=== PATIENT | male | born 1955 | race African-American/Black ===

== ENCOUNTER 2017-09-20 13:35 | Outpatient (CLI) | payer MEDICARE, BC | END 2017-09-20 13:36 | disposition home or self-care (01) | LOC: BICULT 13:35 | PROVIDERS: ATTEND Urology | DX: N18.3 Chronic kidney disease, stage 3 (moderate) (principal); N28.1 Cyst of kidney, acquired | CPT/HCPCS: 76770 ==

== ENCOUNTER 2018-04-09 08:00 | Outpatient (CLI) | payer MEDICARE, BC | END 2018-04-09 08:01 | disposition home or self-care (01) | LOC: BICULT 08:00 | PROVIDERS: ATTEND Internal Medicine Nephrology | DX: Z01.818 Encounter for other preprocedural examination (principal); N18.5 Chronic kidney disease, stage 5 | CPT/HCPCS: 93970; G0365 ==

== ENCOUNTER 2018-04-23 14:52 | Outpatient (CLI) | payer MEDICARE, BC | END 2018-04-23 14:53 | disposition home or self-care (01) | LOC: BICULT 14:52 | PROVIDERS: ATTEND Internal Medicine Nephrology | DX: N18.5 Chronic kidney disease, stage 5 (principal); N28.1 Cyst of kidney, acquired | CPT/HCPCS: 36415; 76770; 80069; 82575; 84156 ==

== ENCOUNTER 2019-04-04 21:50 | Inpatient (IN) | payer MEDICARE, BC ==
[2019-04-04 22:36] LABS: #Basophils 0.1 thou/uL (0.0-0.2); #Eosinphils 0.1 thou/uL (0.0-0.7); #Lymphocytes 1.4 thou/uL (1.20-3.40); #Monocytes 1.5 thou/uL (0.11-0.59); #Neutrophils 13.4 thou/uL (1.40-6.50); %Basophils 0.4 % (0.0-1.0); %Eosinophils 0.4 % (0.0-10.0); %Lymphocytes 8.7 % (21.0-51.0); %Monocytes 9.3 % (0.0-10.0); %Neutrophils 81.2 % (42.0-75.0); Hemoglobin 11.8 g/dL (14.0-18.0); Mean Corpuscular HGB CONC 32.7 g/dL (32.0-36.0); Mean Corpuscular Hemoglobin 29.3 pg (27.0-31.0); Mean Corpuscular Volume 89.6 fL (78.0-98.0); Mean Platelet Volume 8.2 fL (7.4-10.4); Platelet Count 268 thou/uL (130-400); RBC Distribution Width 14.1 % (11.5-14.5); Red Blood Cell (RBC) Count 4.03 mill/uL (4.70-6.10); White Blood Cell (WBC) Count 16.5 thou/uL (4.8-10.8)
--- NOTE | 2019-04-04 22:37 | RAD ---
PA AND LATERAL VIEWS CHEST: 04/04/19 HISTORY: Cough. Dizziness. FINDINGS/IMPRESSION: Comparison made with exam of 12/07/16. There are changes of median sternotomy. The heart size is normal. The aorta is tortuous. The lungs ar e expanded without focal areas of consolidation, pneumothoraces or pleural effusions. There is free a ir under the right hemidiaphragm. Findings are discussed over the telephone with the ER physician, Dr. Trever Vargas at 10:33 p.m. POS: ASMITA
[2019-04-04 22:57] LABS: ALT (SGPT) 12 U/L (8-55); AST (SGOT) 12 U/L (5-34); Albumin 3.4 g/dL (3.4-4.8); Alkaline Phosphatase 102 U/L (40-150); Anion Gap 14 mmol/L (10-20); BUN (Urea Nitrogen) 37 mg/dL (8.4-25.7); Bilirubin, Total 0.8 mg/dL (0.2-1.2); Calc. Creatinine Clearance 0 mL/min (70-130); Calcium 8.3 mg/dL (7.8-10.44); Carbon Dioxide 24 mmol/L (23-31); Chloride 102 mmol/L (98-107); Estimated GFR-MDRD 11; Globulin 3.1 g/dL (2.4-3.5); Glucose 116 mg/dL (80-115); Potassium 3.1 mmol/L (3.5-5.1); Protein, Total 6.5 g/dL (5.8-8.1); Sodium 137 mmol/L (136-145)
[2019-04-04 23:19] LABS: CKMB 0.7 ng/mL (0-6.6)
[2019-04-04] MEDS ORDERED: Acetaminophen 500 MG TAB ONE (23:27)
[2019-04-05] MEDS ORDERED: MEROPENEM 1 GM/50 ML 1 GM in Premix Bag 1 BAG IVPB SCH ×2 (00:15→08:00)
[2019-04-05 02:09] LABS: Troponin I 0.036 ng/mL (< 0.028)
[2019-04-05 06:41] LABS: Troponin I 0.027 ng/mL (< 0.028)
[2019-04-05] MEDS ORDERED: Potassium Chloride 20 MEQ TAB PO SCH (09:15)
[2019-04-05] MEDS ORDERED: HumaLOG 300 UNITS/3 ML VIAL SC PRN (10:17)
[2019-04-05 10:52] LABS: #Basophils 0.1 thou/uL (0.0-0.2); #Eosinphils 0.1 thou/uL (0.0-0.7); #Lymphocytes 0.9 thou/uL (1.20-3.40); #Monocytes 1.1 thou/uL (0.11-0.59); #Neutrophils 9.4 thou/uL (1.40-6.50); %Basophils 0.8 % (0.0-1.0); %Eosinophils 1.1 % (0.0-10.0); %Lymphocytes 7.6 % (21.0-51.0); %Monocytes 9.3 % (0.0-10.0); %Neutrophils 81.3 % (42.0-75.0); Hemoglobin 11.3 g/dL (14.0-18.0); Mean Corpuscular HGB CONC 32.5 g/dL (32.0-36.0); Mean Corpuscular Hemoglobin 29.4 pg (27.0-31.0); Mean Corpuscular Volume 90.5 fL (78.0-98.0); Mean Platelet Volume 8.3 fL (7.4-10.4); Platelet Count 220 thou/uL (130-400); Red Blood Cell (RBC) Count 3.83 mill/uL (4.70-6.10); White Blood Cell (WBC) Count 11.6 thou/uL (4.8-10.8)
[2019-04-05] MEDS: hydrALAZINE 20 MG/ML VIAL SLOW IVP PRN ×2 (11:40→20:37)
[2019-04-05 15:29] LABS: Bacteria/HPF None Seen HPF (None Seen); Bilirubin Negative (Negative); Blood, Urine 1+ (Negative); Clarity Clear (Clear); Glucose, Urine (Dipstick) Normal (Negative); Leukocyte Negative Leu/uL (Negative); Nitrite Negative (Negative); Protein, Urine (Dipstick) 300 mg/dL (Neg-Trace); Squamous Epithelial 0-3 HPF (0-3); Urobilinogen Normal mg/dL (Less than 2); WBC/HPF 0-3 HPF (0-3)
[2019-04-05] MEDS: Acetaminophen 500 MG TAB PO PRN ×2 (15:37→22:18)
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
[2019-04-05] MEDS ORDERED: Prevnar 13-Val Conj/PF 0.5 ML SYRINGE IM ONE (21:00)
[2019-04-06] MEDS: HumaLOG 300 UNITS/3 ML VIAL SC PRN ×2 (07:55→16:50)
[2019-04-06] MEDS: Aspirin 81 mg Enteric Coated Tablet PO SCH (08:00)
[2019-04-06] MEDS: Dutasteride 0.5 MG CAP PO SCH (08:00)
--- NOTE | 2019-04-06 08:41 | PRG ---
DATE OF SERVICE: 04/06/2019 SUBJECTIVE: The patient states that he is feeling better. Continued to run fevers last night up to 102. No nausea or vomiting. He denies chest pain, shortness of breath, or palpitations. He does state that he has been going to wound care since January for ulcers on his feet that have not commented on the status of them. They do not comment on whether they have been discolored or changing at all. OBJECTIVE: VITAL SIGNS: Temperature 99.1, T-max of 102.8, pulse is 76, respirations 16, blood pressure 163/77, and pulse ox is 95% on room air. GENERAL: He is awake and alert. No acute distress. Speech is clear. HEENT: Mucosa is moist. NECK: Supple. HEART: Regular rate and rhythm. LUNGS: Clear. ABDOMEN: Soft, nontender. No hepatosplenomegaly. Peritoneal catheter is in place. EXTREMITIES: With no edema. Dry ulcerated lesions on his right 4th and 5th toes, black in color. Dry ulceration on his 2nd left toe, which is black in color as well. LABORATORY DATA: White blood cell count 11,600, hemoglobin and hematocrit 11.3 and 34.7, and platelets of 220. Accu-Cheks of 112, 100, 168, 115. CBC is pending from this morning. Blood cultures are negative x24 hours. ASSESSMENT AND PLAN: This is a 63-year-old gentleman with type 2 diabetes, coronary artery disease, hypertension, end-stage kidney disease, on peritoneal dialysis, admitted with fever, rule out sepsis, and nonhealing foot wounds. 1. Fever. Await final blood cultures and dialysate culture as well as urine culture. Continue broad-spectrum antibiotics. 2. Gangrene of toes. We will check sed rate and x-ray is not done in the emergency department. Consult Surgery for evaluation. 3. Type 2 diabetes. We will continue Januvia and insulin sliding scale. 4. End-stage renal disease. Continue dialysis as per Dr. Antonio. Job ID: [id number]
[2019-04-06] MEDS: hydrALAZINE 20 MG/ML VIAL SLOW IVP PRN (08:51)
[2019-04-06] MEDS: Alogliptin 6.25 MG TAB PO SCH (08:56)
[2019-04-06] MEDS: Acetaminophen 500 MG TAB PO PRN (08:58)
[2019-04-06] MEDS ORDERED: Atenolol 25 MG TAB PO SCH (09:00)
[2019-04-06 09:20] LABS: ALT (SGPT) 11 U/L (8-55); AST (SGOT) 14 U/L (5-34); Albumin 2.8 g/dL (3.4-4.8); Alkaline Phosphatase 77 U/L (40-150); Anion Gap 14 mmol/L (10-20); BUN (Urea Nitrogen) 41 mg/dL (8.4-25.7); Bilirubin, Total 0.3 mg/dL (0.2-1.2); Calc. Creatinine Clearance 15 mL/min (70-130); Calcium 8.2 mg/dL (7.8-10.44); Carbon Dioxide 24 mmol/L (23-31); Chloride 101 mmol/L (98-107); Estimated GFR-MDRD 11; Globulin 2.9 g/dL (2.4-3.5); Glucose 142 mg/dL (80-115); Protein, Total 5.7 g/dL (5.8-8.1); Sodium 136 mmol/L (136-145)
[2019-04-06 09:24] LABS: #Basophils 0.1 thou/uL (0.0-0.2); #Eosinphils 0.1 thou/uL (0.0-0.7); #Lymphocytes 0.8 thou/uL (1.20-3.40); #Monocytes 0.9 thou/uL (0.11-0.59); #Neutrophils 7.1 thou/uL (1.40-6.50); %Basophils 0.7 % (0.0-1.0); %Eosinophils 1.4 % (0.0-10.0); %Lymphocytes 8.6 % (21.0-51.0); %Monocytes 10.1 % (0.0-10.0); %Neutrophils 79.2 % (42.0-75.0); Mean Corpuscular HGB CONC 32.6 g/dL (32.0-36.0); Mean Platelet Volume 8.4 fL (7.4-10.4); Platelet Count 222 thou/uL (130-400); Red Blood Cell (RBC) Count 3.45 mill/uL (4.70-6.10); White Blood Cell (WBC) Count 8.9 thou/uL (4.8-10.8)
[2019-04-06 09:26] LABS: Potassium 2.9 mmol/L (3.5-5.1)
[2019-04-06] MEDS: Calcitriol 0.25 MCG CAP PO SCH (09:30)
--- NOTE | 2019-04-06 09:37 | RAD ---
LEFT FOOT 3 VIEWS: Date: 04/06/19 COMPARISON: None. HISTORY: Evaluate for osteomyelitis. FINDINGS: There is enthesophyte formation at the insertion of the Achilles tendon and origin of the plantar apo neurosis. There is vascular calcification dorsally. There is no displaced fracture or evidence of dis location. IMPRESSION: No acute osseous abnormality. If there is high clinical concern for osteomyelitis on the basis of phy sical examination, MRI advised. POS: OFF
--- NOTE | 2019-04-06 09:38 | RAD ---
EXAM: Right foot 3 views: HISTORY: Swelling, concern for osteomyelitis COMPARISON: None FINDINGS: No significant bony erosive or destructive change. Given concern for osteomyelitis, particularly if there is evidence for a wound, follow-up MRI on a no nemergent basis is suggested. Degenerative changes. No acute fracture or dislocation or other significant acute osseous abnormality. Bony demineralization. IMPRESSION: No significant acute process.
[2019-04-06] MEDS ORDERED: Potassium Chloride 40 MEQ in Sodium Chloride 0.9% 250 ML 250 ML IVPB SCH (10:00)
[2019-04-06] MEDS ORDERED: cloNIDine 0.1 MG TAB PO SCH (10:45)
[2019-04-06] MEDS: MEROPENEM 1 GM/50 ML 1 GM in Premix Bag 1 BAG IVPB SCH ×2 (14:41→20:59)
[2019-04-06] MEDS: cloNIDine 0.1 MG TAB PO SCH ×2 (14:41→20:18)
[2019-04-06] MEDS: Spironolactone 25 MG TAB PO SCH (16:50)
--- NOTE | 2019-04-06 17:41 | PRG ---
DATE OF SERVICE: 04/06/2019 SUBJECTIVE: The patient seen and examined. Noted with the following vital signs. OBJECTIVE: VITAL SIGNS: Afebrile, temperature 99.8, pulse of 78, respiratory rate of 18, blood pressure 131/94, 212/88. HEENT: Unremarkable. CARDIOVASCULAR SYSTEM: First and second heart sounds were heard. RESPIRATORY SYSTEM: Clear to auscultation. DIGESTIVE SYSTEM: Revealed a benign abdomen. EXTREMITIES: No peripheral edema. SKIN: No new gross rash. LYMPHATICS: No peripheral lymphadenopathy. LABORATORY DATA: Laboratory investigation showed a temperature maximum of 102.8. IMPRESSION: 1. End-stage renal disease, on peritoneal dialysis. 2. Fever . 3. Labile hemodynamics. May need to reintroduce some of this patient's antihypertensive medication. PLAN: 1. The patient to continue with current regimen of peritoneal dialysis. 2. Fever workup as per the primary team. 3. Monitor the hemodynamics and adjust antihypertensive and . Job ID: [id number]
--- NOTE | 2019-04-06 18:18 | PRG ---
DATE OF SERVICE: 04/06/2019 SUBJECTIVE: The patient noted with severe elevated blood pressure of 202/88. Also noted is electrolyte abnormalities in the way of hypokalemia with potassium of 2.9. PLAN: 1. We will replete the potassium. 2. We will have the patient continue with spironolactone with possibility of adjusting his dose for now, but the patient does have some component of hyperaldosteronic state. Job ID: [id number]
[2019-04-06] MEDS: Atenolol 25 MG TAB PO SCH (20:18)
[2019-04-07] MEDS: MEROPENEM 1 GM/50 ML 1 GM in Premix Bag 1 BAG IVPB SCH ×3 (05:11→21:50)
[2019-04-07] MEDS: hydrALAZINE 20 MG/ML VIAL SLOW IVP PRN (05:20)
[2019-04-07 05:50] LABS: HBSAg Index 0.17 S/CO (0-0.99); Hep B Surf Ag Non-Reactive S/CO (NonReactive)
[2019-04-07] MEDS: Calcitriol 0.25 MCG CAP PO SCH (08:43)
[2019-04-07] MEDS: Aspirin 81 mg Enteric Coated Tablet PO SCH (08:45)
[2019-04-07] MEDS: Spironolactone 25 MG TAB PO SCH ×2 (08:45→17:12)
[2019-04-07] MEDS: cloNIDine 0.1 MG TAB PO SCH ×3 (08:45→20:37)
[2019-04-07] MEDS: Dutasteride 0.5 MG CAP PO SCH (08:46)
[2019-04-07] MEDS: Potassium Chloride 20 MEQ TAB PO SCH ×2 (08:46→17:12)
[2019-04-07] MEDS: Atenolol 25 MG TAB PO SCH ×2 (08:47→20:37)
[2019-04-07] MEDS: Alogliptin 6.25 MG TAB PO SCH (08:47)
--- NOTE | 2019-04-07 11:50 | PRG ---
DATE OF SERVICE: 04/07/2019 SUBJECTIVE: Mr. Wise is resting well. He has no medical complaints. OBJECTIVE: VITAL SIGNS: Temperature 98.4, blood pressure 165/71. LUNGS: Clear. HEART: Reveals a regular rate and rhythm. No murmurs, gallops, or rubs. EXTREMITIES: Right foot, there is still some necrotic tissue to the dorsal aspect of the right 4th and 5th toes. There is no evidence of any significant swelling or foul smell. LABORATORY DATA: Microbiology, so far no growth is noted. IMPRESSION: 1. Cellulitis of the right foot. 2. Type 2 diabetes mellitus. 3. End-stage renal disease. PLAN: Continue current treatment. Awaiting surgical consult. Job ID: [id number]
[2019-04-07] MEDS: HumaLOG 300 UNITS/3 ML VIAL SC PRN ×2 (14:10→17:15)
--- NOTE | 2019-04-07 14:33 | CON ---
DATE OF CONSULTATION: REQUESTING PHYSICIAN: Tom Dorman DO REASON FOR CONSULTATION: Need for maintenance peritoneal dialysis. IMPRESSION: 1. End-stage renal disease, on peritoneal dialysis. 2. Hypokalemia. 3. Fever, query source. PLAN: 1. Patient to be dialyzed tonight with dialysis. 2. Renally dose all medications and avoid potentially nephrotoxic agents. HISTORY OF PRESENT ILLNESS: History is that of a 63-year-old gentleman who presented here with nausea, vomiting, leg swelling, and fever. The patient has been worked up so far. The source of the fever is not being found. The patient does not have any urinary symptoms in terms of dysuria nor any frequency. The need for maintenance peritoneal dialysis necessitated this Renal consultation. PAST MEDICAL HISTORY: 1. Significant for end-stage renal disease, on . 2. Hypertension. 3. Tobacco abuse. 4. Dyslipidemia. FAMILY HISTORY: No family history significantly related to present illness. SOCIAL HISTORY: The patient is . No alcohol. . REVIEW OF SYSTEMS: As documented in the body of the history. All other systems were reviewed and found not to be significantly related to present illness. PHYSICAL EXAMINATION: GENERAL: The patient was found not to be in any obvious distress, noted with the following vital signs. VITAL SIGNS: T maximum of 102.7, pulse 90, respiratory rate of 20, O2 saturations are 95% with blood pressure 182/68 . HEENT: Unremarkable. CARDIOVASCULAR SYSTEM: First and second heart sounds were heard. RESPIRATORY SYSTEM: . EXTREMITIES: No peripheral edema. SKI: No new gross rash. LYMPHATICS: No peripheral lymphadenopathy. SUMMARY: A 63-year-old gentleman with end-stage renal disease, on peritoneal dialysis. Job ID: [id number]
[2019-04-07 14:39] LABS: Anion Gap 11 mmol/L (10-20); BUN (Urea Nitrogen) 44 mg/dL (8.4-25.7); Calc. Creatinine Clearance 14 mL/min (70-130); Calcium 7.8 mg/dL (7.8-10.44); Carbon Dioxide 25 mmol/L (23-31); Chloride 99 mmol/L (98-107); Estimated GFR-MDRD 10; Glucose 211 mg/dL (80-115); Potassium 3.3 mmol/L (3.5-5.1); Sodium 132 mmol/L (136-145)
--- NOTE | 2019-04-07 20:25 | PRG ---
DATE OF SERVICE: 04/07/2019 SUBJECTIVE: The patient seen and examined. Noted with the following vital signs. OBJECTIVE: VITAL SIGNS: Afebrile, temperature 98.2, pulse 66, respiratory rate of 16, O2 saturation of 97% with a blood pressure of 161/70. HEENT: Unremarkable. CARDIOVASCULAR SYSTEM: First and second heart sounds were heard. RESPIRATORY SYSTEM: Clear to auscultation. DIGESTIVE SYSTEM: Revealed a benign abdomen. EXTREMITIES: No peripheral edema. SKIN: No new gross rash. LYMPHATICS: No peripheral lymphadenopathy. LABORATORY DATA: Laboratory investigation significant for potassium of 3.3, sodium 132, creatinine 6.73. IMPRESSION: 1. End-stage renal disease, on peritoneal dialysis. 2. Mild hypokalemia. 3. Mild hyponatremia. 4. Cellulitis of the . PLAN: 1. Replete potassium. 2. Continue current peritoneal dialysis treatment. 3. Further management to be dependent on the clinical course. Job ID: [id number]
[2019-04-08] MEDS: MEROPENEM 1 GM/50 ML 1 GM in Premix Bag 1 BAG IVPB SCH ×3 (05:21→21:43)
[2019-04-08] MEDS: cloNIDine 0.1 MG TAB PO SCH ×3 (08:21→22:34)
[2019-04-08] MEDS: Calcitriol 0.25 MCG CAP PO SCH (08:22)
[2019-04-08] MEDS: Dutasteride 0.5 MG CAP PO SCH (08:22)
[2019-04-08] MEDS: Spironolactone 25 MG TAB PO SCH ×2 (08:22→16:37)
[2019-04-08] MEDS: Alogliptin 6.25 MG TAB PO SCH (08:22)
[2019-04-08] MEDS: Aspirin 81 mg Enteric Coated Tablet PO SCH (08:23)
[2019-04-08] MEDS: Atenolol 25 MG TAB PO SCH ×2 (08:24→22:34)
[2019-04-08 08:32] LABS: #Eosinphils 0.3 thou/uL (0.0-0.7); #Lymphocytes 1.4 thou/uL (1.20-3.40); #Monocytes 1.4 thou/uL (0.11-0.59); #Neutrophils 7.3 thou/uL (1.40-6.50); %Basophils 0.2 % (0.0-1.0); %Eosinophils 2.4 % (0.0-10.0); %Lymphocytes 13.8 % (21.0-51.0); %Monocytes 13.3 % (0.0-10.0); %Neutrophils 70.3 % (42.0-75.0); Hemoglobin 9.7 g/dL (14.0-18.0); Mean Corpuscular HGB CONC 32.8 g/dL (32.0-36.0); Mean Corpuscular Hemoglobin 28.7 pg (27.0-31.0); Mean Corpuscular Volume 87.5 fL (78.0-98.0); Mean Platelet Volume 8.5 fL (7.4-10.4); Platelet Count 215 thou/uL (130-400); RBC Distribution Width 13.7 % (11.5-14.5); Red Blood Cell (RBC) Count 3.38 mill/uL (4.70-6.10); White Blood Cell (WBC) Count 10.4 thou/uL (4.8-10.8)
[2019-04-08] MEDS ORDERED: Magnesium Citrate 300 ML BOT PO SCH (08:45)
--- NOTE | 2019-04-08 08:47 | PRG ---
DATE OF SERVICE: 04/08/2019 SUBJECTIVE: The patient is feeling fine. He denies any recent fevers or chills. Denies chest pain, shortness of breath, or palpitations. Tolerating dialysis. Appetite is good. He denies nausea and vomiting. OBJECTIVE: VITAL SIGNS: Temperature 98.9, which is his T-max, pulse is 69, respirations 16, blood pressure 143/66, pulse ox is 94% on room air. GENERAL: He is awake and alert, in no acute distress. Speech is clear. HEENT: Mucosa is moist. NECK: Supple. HEART: Regular rate and rhythm without murmurs. LUNGS: Clear. ABDOMEN: Soft. Peritoneal catheter in place. No sign of redness or discharge. EXTREMITIES: Left upper arm with fistula in place. Positive thrill. LABORATORY DATA: None. No CBC today. Accu-Cheks of 184, 155, 163, 187. Blood cultures 1/2 positive with methicillin-sensitive Staph aureus. Peritoneal fluid positive for gram-negative rods with final identification pending. ASSESSMENT AND PLAN: This is a 63-year-old gentleman with end-stage kidney disease, on peritoneal dialysis, admitted with fever, confusion, rule out sepsis. Continue broad-spectrum antibiotics. 1. Possible peritonitis. Surgery evaluation as well as ID evaluation for possible exchange of peritoneal catheter. 2. Gangrene of the toes, elevated sedimentation rate. X-rays not elucidating. Await surgical evaluation for possible amputation. 3. Type 2 diabetes, appears to be stable on Januvia and sliding scale. 4. End-stage renal disease, on peritoneal dialysis. Plan as well as electrolyte replacement as per Dr. Antonio. Job ID: [id number]
[2019-04-08] MEDS: hydrALAZINE 20 MG/ML VIAL SLOW IVP PRN (09:34)
[2019-04-08] MEDS: Docusate 100 MG CAP PO SCH ×2 (09:35→22:35)
[2019-04-08] MEDS: HumaLOG 300 UNITS/3 ML VIAL SC PRN ×2 (11:40→16:38)
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
[2019-04-08] MEDS ORDERED: hydrALAZINE 20 MG/ML VIAL SLOW IVP PRN (21:35)
[2019-04-08] MEDS ORDERED: Acetaminophen 500 MG TAB PO PRN (21:36)
[2019-04-09] MEDS: MEROPENEM 1 GM/50 ML 1 GM in Premix Bag 1 BAG IVPB SCH ×2 (05:16→14:01)
--- NOTE | 2019-04-09 07:52 | PRG ---
DATE OF SERVICE: 04/09/2019 SUBJECTIVE: He feels fine. He denies chest pain or shortness of breath. Denies abdominal pain, nausea, or vomiting. Denies foot pain. No further fever. Appetite is good. He states that his blood pressure is higher when he is lying down, but improves when he stands up, not having any headaches. OBJECTIVE: VITAL SIGNS: Temperature 97.9, pulse is 68, respirations 16, blood pressure 124/57, and pulse ox is 94% on room air. GENERAL: He is awake and alert. No acute distress. Speech is clear. NECK: Supple. HEART: Regular rate and rhythm. LUNGS: Clear. ABDOMEN: Soft. EXTREMITIES: Without change in foot. LABORATORY DATA: White blood cell count 10.4, hemoglobin and hematocrit 9.7 and 29.6, and platelets of 215. Accu-Cheks of 193, 145, 189, and 180. Peritoneal fluid culture with gram-negative rods, final identification is still pending. Blood cultures 1/2 positive with methicillin-sensitive Staph aureus. ASSESSMENT AND PLAN: This is a 63-year-old gentleman with end-stage renal disease on peritoneal dialysis, admitted with episode of fever, confusion, and rule out sepsis. 1. Apparent peritonitis, day four of meropenem. Await Infectious Disease evaluation. May need to discontinue peritoneal dialysis and switch to hemodialysis. If infected, may need to exchange the peritoneal catheter. 2. Dry gangrene of the toes, appear stable. Appreciate Dr. Sneed's evaluation. No need for amputation at this point. I will continue outpatient wound care as well as cardiovascular evaluation for possible redo of peripheral bypass. 3. Type 2 diabetes. We will continue medications. I will increase insulin for better coverage. Job ID: [id number]
[2019-04-09] MEDS: Atenolol 25 MG TAB PO SCH ×2 (08:29→22:01)
[2019-04-09] MEDS: Docusate 100 MG CAP PO SCH ×2 (08:29→22:00)
[2019-04-09] MEDS: Dutasteride 0.5 MG CAP PO SCH (08:30)
[2019-04-09] MEDS: cloNIDine 0.1 MG TAB PO SCH ×3 (08:30→22:01)
[2019-04-09] MEDS: Aspirin 81 mg Enteric Coated Tablet PO SCH (08:30)
[2019-04-09] MEDS: Calcitriol 0.25 MCG CAP PO SCH (08:31)
[2019-04-09] MEDS: Alogliptin 6.25 MG TAB PO SCH ×2 (08:31→08:34)
[2019-04-09] MEDS: Spironolactone 25 MG TAB PO SCH ×2 (08:32→18:12)
--- NOTE | 2019-04-09 12:42 | PQF ---
ANIKET WHEELERANNE MARIE DO [id number] CLINICAL DOCUMENTATION IMPROVEMENT CLARIFICATION FORM: ICD-10 Updated PLEASE DO AN ADDENDUM TO THE PROGRESS NOTE WITH ANY DOCUMENTATION UPDATES OR ADDITIONS AND CARRY THROUGH TO DC SUMMARY. THANK YOU. DATE: 04/09/2019 , 04/10/2019 ATTN: DR. Fredrick [place] Please exercise your independent, professional judgment in responding to the clarification form. Clinical indicators are provided on the bottom of this form for your review. Please check appropriate box(s) to clarify if the following diagnosis has been ruled in or ruled out: [ ] Sepsis D/T Peritoneal Dialysis Catheter [ ] Sepsis D/T Other Causes [ XX ] Local infection only, No Sepsis [ ] Other diagnosis [ ] Unable to determine In addition, please specify: Present on Admission (POA): [XX ] Yes [ ] No [ ] Unable to determine For continuity of documentation, please document condition throughout progress notes and discharge summary. Thank You. CLINICAL INDICATORS - SIGNS / SYMPTOMS / LABS 04/04 WBC 16.5 04/05 WBC 11.6 04/05 TEMP 101.4> 102.7> 102.8 04/05 H&P (JAYA) A/P : THIS IS A 63 YEAR OLD GENTLEMAN WITH A HISTORY OF TYPE OF T DIABETES, CORONARY ARTERY DISEASE, AND END STAGE RENAL DISEASE, ON PERITONEAL DIALYSIS, NOW ADMITTED WITH FEVERS AND ELEVATED WHITE BLOOD CELL COUNT, WE WILL RULE OUT SEPSIS, RULE OUT PERITONITIS, , POSSIBLE UPPER RESPIRATORY INFECTION, POSSIBLE PNEUMONIA. 04/06 PN (JAYA) CONTINUED TO RUN FEVERS LAST NIGHT UP TO 102. A/P: RULE OUT SEPSIS AND NONHEALING FOOT WOUNDS. 04/08 PN (JAYA) RULE OUT SEPSIS. CONTINUE BROAD SPECTRUM ANTIBIOTICS. 1) POSSIBLE PERITONITIS. SX EVALUATION WELL ID EVALUATION FOR POSSIBLE EXCHANGE OF PERITONEAL CATHETER. 2). GANGRENE OF THE TOES, ELEVATED SEDIMENTATION RATE. 04/08 CONSULT (BAN) THERE IS NO EVIDENCE OF CELLULITIS, AT THIS POINT, I DO NOT THINK THIS THE ETIOLOGY OF THE PATIENTS BACTEREMIA, AND FURTHER ATTENTION TO HIS FEET IS NOT WARRANTED. HE SHOULD WASH THEM DAILY WITH SOAP AND WATER. THERE IS NO CELLULITIS, ULCERATIONS, OR INFECTION CURRENTLY. 04/09 PN (IMPERIAL) A/P: RULE OUT SEPSIS. 1. APPARENT PERITONITIS, DAY FOUR OF MEROPENEM. AWAIT ID EVALUATION. MAY NEED TO DISCONTINUE PERITONEAL DIALYSIS AND SWITCH TO HEMODIALYSIS IF INFECTED., MAY NEED TO EXCHANGE THE PERITONEAL CATHETER. 2). DRY GANGRENE OF THE TOES, APPEAR STABLE. NO NEED FOR AMPUTATION AT THIS PONT. RISK: PT HAS PERITONEAL DIALYSIS CATHETER (PN/IMPERIAL) 04/09 DX: GANGRENE OF TOES, PERITONITIS (IMPERIAL/ PN ) 04/08-04/09 TREATMENTS: ID CONSULT ORDERED (AMILCAR / 04/08) SX CONSULT ( BAN 04/08) MEROPENEM IV ( 04/05-PRESENT) THANK YOU! [place] (This form is maintained as a part of the permanent medical record) 2014 [employer], [employer]. All Rights Reserved KIRIT [email or web address] [phone] [email or web address]
[2019-04-09] MEDS ORDERED: Vancomycin HCl 1.25 GM in Sodium Chloride 0.9% 250 ML 300 ML IVPB SCH (18:00)
[2019-04-09] MEDS: HumaLOG 300 UNITS/3 ML VIAL SC PRN (19:01)
--- NOTE | 2019-04-09 21:32 | PRG ---
DATE OF SERVICE: 04/09/2019 SUBJECTIVE: The patient is seen and examined, very eager to go home, noted with the following vital signs. OBJECTIVE: VITAL SIGNS: Afebrile, temperature of 97.5, pulse of 65, respiratory rate of 18, O2 saturation of 99% with blood pressure of . HEENT: Unremarkable. CARDIOVASCULAR: First and second heart sounds were heard. RESPIRATORY: Clear to auscultation. DIGESTIVE: Benign abdomen with positive bowel sounds. EXTREMITIES: No peripheral edema. SKIN: No new gross rash. LYMPHATICS: No peripheral lymphadenopathy. LABORATORY INVESTIGATIONS: Body fluid culture had grew out Sphingomonas paucimobilis and a blood culture had grew out Staphylococcus aureus. IMPRESSION: 1. End-stage renal disease, on peritoneal dialysis. 2. Fever, query source, possibly due to wound; however, the weird organism growing out of the peritoneal fluid is questionable. 3. Hypertension. PLAN: 1. We will require the help of Infectious Disease specialist to help with this weird organism growing out of the peritoneal fluid. 2. The patient is already on antibiotics, broad spectrum. 3. We will continue with current peritoneal dialysis regimen. 4. Further management will be dependent on the clinical course. Job ID: [id number]
[2019-04-09] MEDS: Cipro 250 MG TAB PO SCH (22:00)
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
[2019-04-10] MEDS: Cipro 250 MG TAB PO SCH ×2 (06:34→22:16)
[2019-04-10] MEDS: HumaLOG 300 UNITS/3 ML VIAL SC PRN ×3 (06:35→22:17)
[2019-04-10] MEDS: Calcitriol 0.25 MCG CAP PO SCH (08:28)
[2019-04-10] MEDS: Spironolactone 25 MG TAB PO SCH ×2 (08:28→16:17)
[2019-04-10] MEDS: Aspirin 81 mg Enteric Coated Tablet PO SCH (08:28)
[2019-04-10] MEDS: Dutasteride 0.5 MG CAP PO SCH (08:28)
[2019-04-10] MEDS: Docusate 100 MG CAP PO SCH ×2 (08:28→22:16)
[2019-04-10] MEDS: Alogliptin 6.25 MG TAB PO SCH (08:28)
[2019-04-10] MEDS: Atenolol 25 MG TAB PO SCH ×2 (08:29→22:15)
[2019-04-10] MEDS: cloNIDine 0.1 MG TAB PO SCH ×3 (08:31→22:16)
[2019-04-10 09:09] LABS: #Eosinphils 0.3 thou/uL (0.0-0.7); #Lymphocytes 1.7 thou/uL (1.20-3.40); #Monocytes 1.3 thou/uL (0.11-0.59); %Basophils 0.3 % (0.0-1.0); %Eosinophils 2.8 % (0.0-10.0); %Lymphocytes 13.4 % (21.0-51.0); %Monocytes 10.6 % (0.0-10.0); Hemoglobin 10.6 g/dL (14.0-18.0); Mean Corpuscular HGB CONC 33.4 g/dL (32.0-36.0); Mean Corpuscular Hemoglobin 29.2 pg (27.0-31.0); Mean Corpuscular Volume 87.7 fL (78.0-98.0); Mean Platelet Volume 8.1 fL (7.4-10.4); Platelet Count 263 thou/uL (130-400); RBC Distribution Width 13.6 % (11.5-14.5); Red Blood Cell (RBC) Count 3.61 mill/uL (4.70-6.10); White Blood Cell (WBC) Count 12.4 thou/uL (4.8-10.8)
[2019-04-10 09:33] LABS: Anion Gap 14 mmol/L (10-20); BUN (Urea Nitrogen) 41 mg/dL (8.4-25.7); Calc. Creatinine Clearance 12 mL/min (70-130); Calcium 8.1 mg/dL (7.8-10.44); Carbon Dioxide 24 mmol/L (23-31); Chloride 100 mmol/L (98-107); Estimated GFR-MDRD 9; Glucose 135 mg/dL (80-115); Potassium 3.4 mmol/L (3.5-5.1); Sodium 135 mmol/L (136-145)
--- NOTE | 2019-04-10 10:00 | PRG ---
DATE OF SERVICE: 04/10/2019 SUBJECTIVE: The patient is feeling well. He denies any fevers, chills. Denies nausea and vomiting. Denies abdominal pain. Appetite is good. Denies headache , visual or hearing changes. Tolerating medicines. OBJECTIVE: VITAL SIGNS: Temperature 98.5, pulse is 68, respirations 16, blood pressure 148 to 179 over 72 to 80. GENERAL: He is awake and alert. No acute distress. HEENT: Mucosa is moist. NECK: Supple. HEART: Regular rate and rhythm. LUNGS: Clear. ABDOMEN: Soft. EXTREMITIES: With no edema. No changes in wounds on right toes and left toe. Decreased peripheral pulses bilaterally. Peritoneal catheter is in place. No sign of infection. No redness. No tenderness. Left fistula with positive thrill. LABORATORY RESULTS: Laboratory data pending. CARDIOVASCULAR STUDIES: Echocardiogram is pending. IMAGING STUDIES: MRI is pending. ASSESSMENT AND PLAN: This is a 63-year-old gentleman with end-stage kidney disease, uncontrolled type 2 diabetes, uncontrolled hypertension, history of noncompliance, admitted with fever, confusion, rule out sepsis. 1. Peritonitis is ruled out. Discussed with Dr. Avalos about the positive Sphingomonas in the peritoneal fluid and its apparent contaminant as it is a skin bacteria. He feels that there is no treatment necessary for the peritoneal fluid as there is no sign of an infection there. 2. Dry gangrene of the toes, worse on the right foot, elevated sedimentation rate, normal x-ray, and Dr. Avalos recommends MRI of the foot to rule out osteomyelitis. We will also consult Podiatry for evaluation as the patient states he just wants the toes "cut off" if there is going to be a possible source of infection in the future. 3. Type 2 diabetes, better with current dosage. We will continue plan. 4. Labile hypertension, appears to be more stable now with current medications and checking his blood pressure, positional. 5. Disposition; hopefully home today after evaluation by Podiatry as well as MRI. If amputation is needed, could do during this hospitalization or could come back for outpatient treatment. Job ID: [id number] MTDD
--- NOTE | 2019-04-10 15:44 | MRI ---
MRI OF THE RIGHT FOREFOOT 04/10/19 PROVIDED CLINICAL HISTORY: Right forefoot wound. FINDINGS: There is diffuse signal alteration involving the intrinsic foot musculature typical for diabetic noel ents. There is signal alteration involving the fourth digit middle phalanx on fluid sensitive sequenc es without definite T1 signal alteration. Regional marrow signal appears otherwise normal. There is no evidence for focal fluid collection to suggest abscess with limitations due to lack of IV contrast material. No regional joint effusion is evident. No significant tenosynovial fluid is evide nt. The dorsal extensor and plantar flexor tendons demonstrate an intact MR appearance. IMPRESSION: Signal alteration involving the fourth digit middle phalanx may reflect changes of reactive osteitis or early osteomyelitis. POS: TPC
[2019-04-10 19:34] VITALS: TEMP 98.6
--- NOTE | 2019-04-10 21:47 | PRG ---
DATE OF SERVICE: 04/10/2019 SUBJECTIVE: The patient is seen and examined. Noted with the following vital signs. OBJECTIVE: VITAL SIGNS: Afebrile, temperature 98.2, pulse 67, respiratory rate of 18, O2 saturation of 95%, and blood pressure 120/55. HEENT: Unremarkable. CARDIOVASCULAR: First and second heart sounds were heard. RESPIRATORY: Clear to auscultation. DIGESTIVE: Revealed a benign abdomen. Positive bowel sounds. EXTREMITIES: No peripheral edema. SKIN: No new gross rash. LYMPHATICS: No peripheral lymphadenopathy. IMPRESSION: 1. End-stage renal disease, on hemodialysis. 2. Query osteomyelitis of the right foot. 3. Hypertension. PLAN: 1. I do appreciate Infectious Disease consult input. The patient to be evaluated by [employer] tomorrow. 2. We will continue with current renal treatment. 3. From the renal standpoint, the patient is good for discharge any time. All the other workup/treatment concluded. 4. Further management to be dependent on the clinical course. Job ID: [id number]
[2019-04-11 05:32] VITALS: BMI 25.9
[2019-04-11] MEDS: Cipro 250 MG TAB PO SCH (06:40)
--- NOTE | 2019-04-11 07:19 | PRG ---
DATE OF SERVICE: 04/08/2019 SUBJECTIVE: The patient is seen and examined and noted with the following vital signs. OBJECTIVE: VITAL SIGNS: Afebrile, temperature 97.7, pulse 65, respiratory rate of 16, O2 saturation 95%, and blood pressure 124/57. HEENT: Unremarkable. CARDIOVASCULAR SYSTEM: First and second heart sounds were heard. RESPIRATORY SYSTEM: Clear to auscultation. DIGESTIVE SYSTEM: Revealed a benign abdomen. EXTREMITIES: No peripheral edema. SKIN: No new gross rash. LYMPHATICS: No peripheral lymphadenopathy. LABORATORY INVESTIGATION: Showed a hemoglobin of 9.7. Chemistry; none was done on the 3rd, they did prior to that showed a potassium of 3.3, BUN of 44, and creatinine of 6.73. IMPRESSION: 1. End-stage renal disease, on peritoneal dialysis. 2. Hypertension, labile. 3. Diabetes mellitus. 4. Fever, query source. PLAN: 1. We will continue with current peritoneal dialysis regimen. 2. Broad spectrum antibiotics ongoing. 3. From all indication, it does not seem as patient has peritonitis. 4. Further management will be dependent on the clinical course. Job ID: [id number]
--- NOTE | 2019-04-11 07:55 | PRG ---
DATE OF SERVICE: 04/11/2019 SUBJECTIVE: The patient is noted to be hemodynamically stable. OBJECTIVE: HEENT: Unremarkable. CARDIOVASCULAR: First and second heart sounds were heard. RESPIRATORY: Clear to auscultation. DIGESTIVE: Revealed a benign abdomen. EXTREMITIES: No peripheral edema. SKIN: No new gross rash. LYMPHATICS: No peripheral lymphadenopathy. LABORATORY INVESTIGATION: Significant for the MRI of the lower extremity that revealed signal alteration involving the 4th digit, middle phalanx which may reflect changes of reactive osteitis or early osteomyelitis. IMPRESSION: 1. End-stage renal disease, on peritoneal dialysis. 2. Peritonitis ruled out by infectious disease specialist evaluation. 3. Possible osteitis versus early osteomyelitis involving the 4th digit, middle phalanx. 4. Diabetes mellitus, type 2. PLAN: 1. continue with peritoneal dialysis treatment regimen. 2. Continue to renally dose all medications. 3. The patient to be evaluated by Podiatry. 4. Further management will be dependent on the clinical course. Job ID: [id number]
[2019-04-11 08:28] VITALS: BP 138/65
[2019-04-11] MEDS: cloNIDine 0.1 MG TAB PO SCH (09:04)
[2019-04-11] MEDS: Docusate 100 MG CAP PO SCH (09:05)
[2019-04-11] MEDS: Aspirin 81 mg Enteric Coated Tablet PO SCH (09:05)
[2019-04-11] MEDS: Dutasteride 0.5 MG CAP PO SCH (09:05)
[2019-04-11] MEDS: Spironolactone 25 MG TAB PO SCH (09:05)
[2019-04-11] MEDS: Atenolol 25 MG TAB PO SCH (09:05)
[2019-04-11] MEDS: Alogliptin 6.25 MG TAB PO SCH (09:06)
[2019-04-11] MEDS: Calcitriol 0.25 MCG CAP PO SCH (09:06)
--- NOTE | 2019-04-11 10:49 | CON ---
DATE OF CONSULTATION: HISTORY OF PRESENT ILLNESS: A 63-year-old male, seen today in the Oncology Unit, resting well, vital signs stable, in no apparent distress. The patient is present with his in the room at bedside. The patient was admitted for nausea, fevers, and ulcerations on the fourth and fifth digits of the right foot. He claims open wounds to his foot gradually developed and turned darker within the last few weeks to the point where he developed fevers and nausea on April 04, and was admitted on the . PAST MEDICAL HISTORY: Diabetic, hypertension, cholesterol, CABG x3, and history of stent surgery on the left lower extremity. Currently, on peritoneal dialysis. ALLERGIES: 1. BACITRACIN. 2. NEOSPORIN. 3. PENICILLIN. 4. POLYMYXIN B. SOCIAL HISTORY: Denies alcohol or tobacco use. FAMILY HISTORY: Positive diabetes. MEDICATIONS: Listed in chart. REVIEW OF SYSTEMS: Noted in chart. PHYSICAL EXAMINATION: LOWER EXTREMITIES: VASCULAR STATUS: 1/4 dorsalis pedis pulses bilaterally. Posterior pulses 1/4 bilaterally. Capillary fill time to the left foot is 3 seconds, digits 1 through 5. On the right foot, capillary fill time to first, second, and third digits is greater than 3 seconds. Cool, shiny, atrophic skin, absent hair growth in bilateral lower extremities. NEUROLOGIC: Epicritic sensation is reduced. Reduced protected threshold noted in bilateral lower extremities. MUSCULOSKELETAL: The patient is ambulatory, 5/5 muscle grading. DERMATOLOGIC: The patient shows dark, dry gangrene to the fourth and fifth digits of the right foot with open ulcerations. No acute signs of cellulitis or underlying abscess noted to gangrenous site. Positive pain on palpation. ASSESSMENT AND PLAN: Diabetic ulceration with secondary gangrene, fourth and fifth digits, right foot and diabetes with peripheral vascular disease. The patient is an established office patient of [employer]. Currently, at this time, the gangrene is noted to be stable and dry in nature with no acute infection. I do not recommend surgery/amputation at this time until he is assessed and evaluated by Dr. Harden on an outpatient setting to see if we can increase circulation to his foot prior to any type of amputation. We run the risk of further proximal amputation due to nonhealing. I recommend current treatment, which includes Betadine-soaked gauze twice a day, and I also recommend that he go home on an oral antibiotic to prevent wet gangrene at this time until he is at least seen by Dr. Harden. We discussed leaving the gangrene alone to self amputate as one option versus possible surgery down the road if necessary or if we increased blood flow by Dr. Harden. The patient is to see me on an outpatient setting once discharged from the hospital and to call Dr. Harden's office for an appointment as soon as possible for evaluation. Thank you for this consultation. If you have any questions or concerns, please call me at [phone]. Job ID: [id number]
--- NOTE | 2019-04-12 02:58 | DIS ---
DATE OF ADMISSION: 04/05/2019 DATE OF DISCHARGE: 04/11/2019 ADMISSION DIAGNOSES: 1. Rule out sepsis, weakness. 2. Diabetic foot ulcer. 3. End-stage renal disease, on peritoneal dialysis. DISCHARGE DIAGNOSES: Staph aureus bacteremia, rule out osteomyelitis, dry gangrene of toes. CONSULTATIONS: Dr. Avalos for Infectious Disease, Dr. Sneed for Surgery, Dr. Ko for Podiatry, Dr. Antonio for Nephrology. PROCEDURES: Foot x-ray, MRI foot, echocardiogram, broad-spectrum antibiotics. HOSPITAL COURSE: This is a 63-year-old gentleman with multiple medical problems including end-stage kidney disease and end-stage diabetes. He is being treated for diabetic foot ulcers by [facility] as an outpatient for the past several weeks. He was seen by Dr. Antonio with fevers up to 101. He was sent to the emergency department, was evaluated. He was started on IV meropenem for broad-spectrum coverage to rule out possible peritonitis, possible osteomyelitis. He improved rapidly with broad-spectrum antibiotics. Dr. Antonio was continuing to follow him and monitoring his renal function. He continued the peritoneal dialysis. As cultures began to result, he was found to have 1 out of 2 positive blood cultures with methicillin-sensitive Staph aureus. His peritoneal dialysis site was growing bacteria, which ended up being Sphingomonas, which was consistent with a contaminant as it is a skin organism. Dr. Avalos continued to evaluate him and felt like the most likely origin of the Staph aureus was his toes. X-ray showed no acute disease. His sedimentation rate was elevated. MRI showed suspicion for early osteomyelitis in the right 4th toe. Both Dr. Sneed and Dr. Ko agreed that surgery was not necessary at this time due to his poor vascular status. It was recommended that he follow up with his linoleum tile layer Dr. Harden as an outpatient to discuss some sort of revascularization or improvement of his blood flow before any amputation was performed. The patient continued to improve. He underwent an echocardiogram to rule out the possibility of a large vegetation causing endocarditis and causing his positive blood cultures. This should show no evidence of vegetations, ejection fraction was 55% to 60%, there was moderate left ventricular hypertrophy, thickened aortic valve with normal excursion. PHYSICAL EXAMINATION: VITAL SIGNS: Temperature 98.6, pulse 74, respirations 18, blood pressure 160/72, pulse ox is 97% on room air. GENERAL: He is awake and alert. No acute distress. Speech is clear. HEENT: Mucosa is moist. NECK: Supple. HEART: Regular rate and rhythm. LUNGS: Clear. ABDOMEN: Soft. EXTREMITIES: With no edema. Decreased peripheral pulses, bilateral lower extremities. Stable dry gangrene on his toes, worse on his right 4th and 5th digits and his left 3rd toe. DISCHARGE LABORATORY DATA: White blood cell count 12.4, hemoglobin and hematocrit 10.6 and 31.7 with normal indices, platelets of 263. Sodium 135, potassium 3.4, chloride 100, CO2 of 24, BUN and creatinine 41 and 7.7 with a GFR of 9, serum glucose of 135. Accu-Cheks of 123, 222, 78, 205. Calcium of 8.1. IMAGING DATA: As described above. DISCHARGE MEDICATIONS: Include; 1. Cipro 250 b.i.d. for 4 weeks. 2. Spironolactone 50 mg b.i.d. 3. Avodart 0.5 mg daily. 4. Colace 100 mg b.i.d. 5. Clonidine 0.1 mg t.i.d. 6. Vitamin D3, 2000 units daily. 7. Calcitriol 0.25 mcg daily. 8. Atenolol 50 mg b.i.d. 9. Aspirin 81 mg daily. 10. Januvia 50 mg daily. 11. Tylenol p.r.n. pain. FOLLOWUP INSTRUCTIONS: The patient to follow up in my office in 1 week. Follow up with Dr. Avalos in [address] Harden in 1 to 2 weeks. He is to continue outpatient wound care with close followup with either Podiatry or General Surgery following any sort of revascularization. He will follow up with Dr. Harden also to evaluate for possible SARA if he continues to run fevers. Job ID: [id number]
== END 2019-04-11 10:55 | disposition home or self-care (01) | DRG 299 ==
LOC: ERS 21:50 → 2SW 04-05 00:05 → OBSVTOIN 04-05 10:15 → ONC 04-05 19:23 → UNDODISIN 04-08 16:47
PROVIDERS: ADMIT Family Medicine; ATTEND Family Medicine
PROC: 5A1D70Z Performance of Urinary Filtration, Intermittent, Less than 6 Hours Per Day (ICD-10-PCS; principal; 2019-04-06)
DX: E11.52 Type 2 diabetes mellitus with diabetic peripheral angiopathy with gangrene (principal); N18.6 End stage renal disease; I96 Gangrene, not elsewhere classified; I12.0 Hypertensive chronic kidney disease with stage 5 chronic kidney disease or end stage renal disease; L03.115 Cellulitis of right lower limb; E87.1 Hypo-osmolality and hyponatremia; R78.81 Bacteremia; E78.5 Hyperlipidemia, unspecified; E11.22 Type 2 diabetes mellitus with diabetic chronic kidney disease; I25.10 Atherosclerotic heart disease of native coronary artery without angina pectoris; E87.6 Hypokalemia; E11.621 Type 2 diabetes mellitus with foot ulcer; L97.519 Non-pressure chronic ulcer of other part of right foot with unspecified severity; Z95.1 Presence of aortocoronary bypass graft; Z79.82 Long term (current) use of aspirin; Z79.899 Other long term (current) drug therapy; Z88.0 Allergy status to penicillin; Z88.8 Allergy status to other drugs, medicaments and biological substances; Z98.890 Other specified postprocedural states; B95.61 Methicillin susceptible Staphylococcus aureus infection as the cause of diseases classified elsewhere
CPT/HCPCS: 36415; 36416; 71046; 80048; 80053; 81003; 81015; 82553; 83605; 83735; 83880; 84484; 85025; 85652; 87040; 87070; 87077; 87149; 87186; 87205; 87340; 90945; 93005; 93306; 96365; G0257; J0360; J2185; J3370; J3480; J3490; J7050

== ENCOUNTER 2020-10-26 17:23 | Inpatient (IN) | payer MEDICARE ==
[2020-10-26] MEDS ORDERED: Pantoprazole 40 MG VIAL ONE (18:23)
[2020-10-26 18:40] LABS: INR-International Normal Ratio 0.9; PTT 29.2 sec (22.9-36.1); Prothrombin Time 12.4 sec (12.0-14.7)
[2020-10-26 18:41] LABS: Hemoglobin 13.5 g/dL (14.0-18.0); Mean Corpuscular HGB CONC 30.8 g/dL (32.0-36.0); Mean Corpuscular Hemoglobin 28.5 pg (27.0-31.0); Mean Corpuscular Volume 92.5 fL (78.0-98.0); Mean Platelet Volume 9.2 fL (7.4-10.4); Platelet Count 380 thou/uL (130-400); RBC Distribution Width 14.9 % (11.5-14.5); Red Blood Cell (RBC) Count 4.75 mill/uL (4.70-6.10)
[2020-10-26 18:53] LABS: White Blood Cell (WBC) Count 17.8 thou/uL (4.8-10.8)
[2020-10-26 18:54] LABS: Band 4 % (5-11); Lymphocytes 12 % (21-51); MDiff Complete? YES; Monocytes 8 % (0-10); Neutrophil 76 % (42-75); Platelet Morphology Comment Appears Adequate; RBC Morphology Normal
[2020-10-26 19:17] LABS: CKMB 0.6 ng/mL (0-6.6)
[2020-10-26 20:07] LABS: Albumin Less than 1.0 g/dL (3.4-4.8)
[2020-10-26 20:08] LABS: Chloride 101 mmol/L (98-107); Potassium 3.5 mmol/L (3.5-5.1); Sodium 132 mmol/L (136-145)
[2020-10-26 20:09] LABS: Calcium 7.6 mg/dL (7.8-10.44)
[2020-10-26 20:10] LABS: Globulin 4.5 g/dL (2.4-3.5); Protein, Total 5.5 g/dL (5.8-8.1)
[2020-10-26 20:11] LABS: Anion Gap 19 mmol/L (10-20); Bilirubin, Total 0.7 mg/dL (0.2-1.2); Carbon Dioxide 16 mmol/L (23-31)
[2020-10-26 20:13] LABS: Calc. Creatinine Clearance 0 mL/min (70-130)
[2020-10-26 20:14] LABS: BUN (Urea Nitrogen) 11 mg/dL (8.4-25.7)
[2020-10-26 20:15] LABS: AST (SGOT) 6 U/L (5-34)
[2020-10-26 20:33] LABS: Glucose 167 mg/dL (80-115)
[2020-10-26 20:35] LABS: Alkaline Phosphatase 93 U/L (40-110)
[2020-10-26 20:38] LABS: ALT (SGPT) Less than 7 U/L (8-55); Magnesium 1.2 mg/dL (1.6-2.6)
[2020-10-26 20:39] LABS: CK (CPK) 14 U/L (30-200)
[2020-10-26] MEDS ORDERED: Vancomycin 1 GM/200 ML BAG ONE (20:59)
[2020-10-26] MEDS ORDERED: Cefepime 2 GM VIAL ONE (20:59)
[2020-10-27 00:04] LABS: Lactic Acid 2.5 mmol/L (0.5-2.2)
[2020-10-27] MEDS ORDERED: Ondansetron PF 4 MG/2 ML Vial IVP PRN (03:18)
[2020-10-27] MEDS ORDERED: Acetaminophen 325 MG TAB PO PRN (03:18)
[2020-10-27] MEDS ORDERED: Dextrose 5% in Water 1,000 ML IV PRN (03:51)
[2020-10-27] MEDS ORDERED: Dextrose 50% Abboject 50 ML SYRINGE SLOW IVP PRN (03:51)
[2020-10-27] MEDS ORDERED: Magnesium Sulfate 4 GM in Sodium Chloride 0.9% 250 ML 250 ML IVPB SCH (04:00)
[2020-10-27] MEDS ORDERED: Vancomycin 1 GM in Premix Bag 1 BAG IVPB SCH (04:15)
[2020-10-27] MEDS ORDERED: HOLD VANCOMYCIN FOR LEVEL >20 FS SCH (04:15)
[2020-10-27] MEDS ORDERED: Vancomycin HCl 750 MG in Sodium Chloride 0.9% 250 ML 250 ML IVPB SCH (04:15)
[2020-10-27] MEDS ORDERED: Vancomycin HCl 500 MG in Sodium Chloride 0.9% 100 ML IVPB SCH (04:15)
[2020-10-27] MEDS ORDERED: SODIUM CHLORIDE 0.9% IVPB SCH (04:15)
[2020-10-27] MEDS ORDERED: VANCOMYCIN IVPB SCH (04:15)
[2020-10-27 05:35] LABS: Troponin I 0.036 ng/mL (< 0.028)
[2020-10-27 05:36] LABS: SARS-CoV-2 PCR by NAA Not Detected (NotDetected)
[2020-10-27 05:43] LABS: Anion Gap 13 mmol/L (10-20); BUN (Urea Nitrogen) 21 mg/dL (8.4-25.7); Calc. Creatinine Clearance 0 mL/min (70-130); Calcium 7.4 mg/dL (7.8-10.44); Carbon Dioxide 22 mmol/L (23-31); Chloride 101 mmol/L (98-107); Glucose 100 mg/dL (80-115); Potassium 3.4 mmol/L (3.5-5.1); Sodium 133 mmol/L (136-145)
[2020-10-27 05:57] LABS: #Basophils 0.1 thou/uL (0.0-0.2); #Eosinphils 0.1 thou/uL (0.0-0.7); #Lymphocytes 1.5 thou/uL (1.20-3.40); #Monocytes 0.9 thou/uL (0.11-0.59); %Basophils 0.6 % (0.0-1.0); %Monocytes 7.4 % (0.0-10.0); Hemoglobin 11.9 g/dL (14.0-18.0); Mean Corpuscular Hemoglobin 29.4 pg (27.0-31.0); Mean Platelet Volume 9.1 fL (7.4-10.4); Platelet Count 269 thou/uL (130-400); RBC Distribution Width 14.8 % (11.5-14.5); Red Blood Cell (RBC) Count 4.03 mill/uL (4.70-6.10); White Blood Cell (WBC) Count 12.2 thou/uL (4.8-10.8)
[2020-10-27 07:34] LABS: Troponin I 0.041 ng/mL (< 0.028)
[2020-10-27] MEDS ORDERED: Pantoprazole 40 MG VIAL ONE (08:57)
[2020-10-27] MEDS: Pantoprazole 40 MG VIAL IVP SCH (09:10)
[2020-10-27 11:03] VITALS: BMI 20.5
[2020-10-27 19:15] LABS: Clarity Cloudy (Clear); Specific Gravity, Urine 1.018 (1.002-1.036); pH, Urine 6.6 (5.0-9.0)
[2020-10-27 19:16] LABS: Leukocyte Large (Negative); Nitrite Negative (Negative)
[2020-10-27 19:17] LABS: Glucose, Urine (Dipstick) Negative (Negative); Ketone, Urine Negative (Negative); Protein, Urine (Dipstick) 300 mg/dL (Neg-Trace); Urobilinogen 0.2 mg/dL (Less than 2)
[2020-10-27 19:18] LABS: Bilirubin Negative (Negative); Blood, Urine Large (Negative)
[2020-10-27 19:19] LABS: Squamous Epithelial None Seen HPF (0-3); WBC/HPF Greater than 50 HPF (0-3)
[2020-10-27 19:20] LABS: Bacteria/HPF 3+ HPF (None Seen)
[2020-10-27 19:22] LABS: Urine Culture Reflex Yes Yes
[2020-10-28 04:59] LABS: #Basophils 0.1 thou/uL (0.0-0.2); #Eosinphils 0.1 thou/uL (0.0-0.7); #Lymphocytes 1.3 thou/uL (1.20-3.40); #Monocytes 0.7 thou/uL (0.11-0.59); #Neutrophils 6.7 thou/uL (1.40-6.50); %Basophils 0.7 % (0.0-1.0); %Eosinophils 1.5 % (0.0-10.0); %Lymphocytes 14.7 % (21.0-51.0); %Monocytes 7.4 % (0.0-10.0); %Neutrophils 75.7 % (42.0-75.0); Hemoglobin 10.1 g/dL (14.0-18.0); Mean Corpuscular HGB CONC 32.2 g/dL (32.0-36.0); Mean Corpuscular Hemoglobin 29.4 pg (27.0-31.0); Mean Corpuscular Volume 91.1 fL (78.0-98.0); Platelet Count 277 thou/uL (130-400); RBC Distribution Width 14.8 % (11.5-14.5); Red Blood Cell (RBC) Count 3.45 mill/uL (4.70-6.10); White Blood Cell (WBC) Count 8.9 thou/uL (4.8-10.8)
[2020-10-28 05:22] LABS: Anion Gap 15 mmol/L (10-20); BUN (Urea Nitrogen) 23 mg/dL (8.4-25.7); Calc. Creatinine Clearance 10 mL/min (70-130); Carbon Dioxide 22 mmol/L (23-31); Chloride 97 mmol/L (98-107); Glucose 174 mg/dL (80-115); Sodium 131 mmol/L (136-145)
[2020-10-28 05:24] LABS: Potassium 2.8 mmol/L (3.5-5.1)
[2020-10-28] MEDS ORDERED: Potassium Chloride 20 MEQ TAB PO SCH ×2 (06:00→12:00)
[2020-10-28 08:14] LABS: Vancomycin, Random 11.4 ug/mL (See Comment)
[2020-10-28] MEDS: HumaLOG 300 UNITS/3 ML VIAL SC PRN (08:31)
[2020-10-28] MEDS: Pantoprazole 40 MG VIAL IVP SCH (09:00)
[2020-10-28 12:12] LABS: Troponin I 0.027 ng/mL (< 0.028)
[2020-10-28 15:03] LABS: Potassium 3.4 mmol/L (3.5-5.1)
[2020-10-28] MEDS ORDERED: Cefepime 1 GM in Sodium Chloride 0.9% 100 ML IVPB SCH (21:00)
[2020-10-29 05:37] LABS: #Eosinphils 0.2 thou/uL (0.0-0.7); #Lymphocytes 1.5 thou/uL (1.20-3.40); #Monocytes 0.7 thou/uL (0.11-0.59); #Neutrophils 8.3 thou/uL (1.40-6.50); %Basophils 0.3 % (0.0-1.0); %Eosinophils 1.5 % (0.0-10.0); %Lymphocytes 13.9 % (21.0-51.0); %Monocytes 6.1 % (0.0-10.0); %Neutrophils 78.2 % (42.0-75.0); Hemoglobin 11.5 g/dL (14.0-18.0); Mean Corpuscular HGB CONC 32.1 g/dL (32.0-36.0); Mean Corpuscular Hemoglobin 29.1 pg (27.0-31.0); Mean Corpuscular Volume 90.8 fL (78.0-98.0); Mean Platelet Volume 8.8 fL (7.4-10.4); Platelet Count 313 thou/uL (130-400); RBC Distribution Width 14.9 % (11.5-14.5); Red Blood Cell (RBC) Count 3.95 mill/uL (4.70-6.10); White Blood Cell (WBC) Count 10.7 thou/uL (4.8-10.8)
[2020-10-29 06:01] LABS: Anion Gap 13 mmol/L (10-20); BUN (Urea Nitrogen) 23 mg/dL (8.4-25.7); Calc. Creatinine Clearance 10 mL/min (70-130); Calcium 7.1 mg/dL (7.8-10.44); Carbon Dioxide 24 mmol/L (23-31); Chloride 98 mmol/L (98-107); Glucose 162 mg/dL (80-115); Magnesium 1.8 mg/dL (1.6-2.6); Potassium 3.5 mmol/L (3.5-5.1); Sodium 131 mmol/L (136-145)
[2020-10-29] MEDS: Potassium Chloride 20 MEQ TAB PO SCH (09:43)
[2020-10-29] MEDS: Pantoprazole 40 MG VIAL IVP SCH (09:43)
[2020-10-30] MEDS: HumaLOG 300 UNITS/3 ML VIAL SC PRN (06:05)
[2020-10-30] MEDS: Potassium Chloride 20 MEQ TAB PO SCH (09:05)
[2020-10-30] MEDS: Pantoprazole 40 MG VIAL IVP SCH (09:09)
[2020-10-30 11:48] VITALS: BP 170/88
[2020-10-30 12:07] VITALS: TEMP 97.3
== END 2020-10-30 14:17 | disposition home or self-care (01) | DRG 871 ==
LOC: ERS 17:23 → ERHOLD 22:57 → 2SE 10-27 10:51
PROVIDERS: ADMIT Internal Medicine; ATTEND Family Medicine
PROC: 3E1M39Z Irrigation of Peritoneal Cavity using Dialysate, Percutaneous Approach (ICD-10-PCS; principal; 2020-10-29)
DX: A41.51 Sepsis due to Escherichia coli [E. coli] (principal); N18.6 End stage renal disease; N39.0 Urinary tract infection, site not specified; I12.0 Hypertensive chronic kidney disease with stage 5 chronic kidney disease or end stage renal disease; E44.0 Moderate protein-calorie malnutrition; E87.1 Hypo-osmolality and hyponatremia; Z16.23 Resistance to quinolones and fluoroquinolones; Z16.29 Resistance to other single specified antibiotic; I25.10 Atherosclerotic heart disease of native coronary artery without angina pectoris; E78.5 Hyperlipidemia, unspecified; E11.22 Type 2 diabetes mellitus with diabetic chronic kidney disease; E83.42 Hypomagnesemia; E11.51 Type 2 diabetes mellitus with diabetic peripheral angiopathy without gangrene; E87.6 Hypokalemia; D63.1 Anemia in chronic kidney disease; Z20.822 Contact with and (suspected) exposure to COVID-19; F17.210 Nicotine dependence, cigarettes, uncomplicated; Z99.2 Dependence on renal dialysis; Z88.0 Allergy status to penicillin; Z88.1 Allergy status to other antibiotic agents; Z79.82 Long term (current) use of aspirin; Z95.1 Presence of aortocoronary bypass graft; Z89.511 Acquired absence of right leg below knee; Z68.20 Body mass index [BMI] 20.0-20.9, adult
CPT/HCPCS: 36415; 36416; 71045; 74176; 80048; 80053; 80202; 81001; 82274; 82550; 82553; 83605; 83735; 84443; 84484; 85025; 85610; 85730; 86850; 86900; 86901; 87040; 87077; 87086; 87186; 87324; 87449; 87635; 90945; 93005; 96365; 96367; 96375; C9113; G0257; J0692; J1815; J3370; J3475; J3490; J7050; U0003; U0005

== ENCOUNTER 2020-11-27 14:50 | Emergency (ER) | payer MEDICARE ==
[~2020-11-27 14:50] MED LIST: Iopamidol 370 76% 100 ML VIAL ONE
[2020-11-27 16:05] LABS: #Eosinphils 0.1 thou/uL (0.0-0.7); #Lymphocytes 2.2 thou/uL (1.20-3.40); #Monocytes 0.8 thou/uL (0.11-0.59); %Basophils 0.5 % (0.0-1.0); %Lymphocytes 21.4 % (21.0-51.0); %Monocytes 8.1 % (0.0-10.0); %Neutrophils 69.1 % (42.0-75.0); Hemoglobin 13.8 g/dL (14.0-18.0); Mean Corpuscular HGB CONC 32.2 g/dL (32.0-36.0); Mean Corpuscular Hemoglobin 28.4 pg (27.0-31.0); Mean Corpuscular Volume 88.2 fL (78.0-98.0); Mean Platelet Volume 10.6 fL (7.4-10.4); Platelet Count 121 thou/uL (130-400); RBC Distribution Width 14.7 % (11.5-14.5); Red Blood Cell (RBC) Count 4.85 mill/uL (4.70-6.10); White Blood Cell (WBC) Count 10.2 thou/uL (4.8-10.8)
[2020-11-27 16:12] LABS: INR-International Normal Ratio 0.9; PTT 30.2 sec (22.9-36.1); Prothrombin Time 12.2 sec (12.0-14.7)
[2020-11-27 16:17] LABS: ALT (SGPT) Less than 7 U/L (8-55); AST (SGOT) 8 U/L (5-34); Albumin 1.9 g/dL (3.4-4.8); Alkaline Phosphatase 89 U/L (40-110); Anion Gap 15 mmol/L (10-20); BUN (Urea Nitrogen) 14 mg/dL (8.4-25.7); Bilirubin, Total 0.6 mg/dL (0.2-1.2); Calc. Creatinine Clearance 0 mL/min (70-130); Calcium 7.4 mg/dL (7.8-10.44); Carbon Dioxide 22 mmol/L (23-31); Chloride 95 mmol/L (98-107); Globulin 3.4 g/dL (2.4-3.5); Glucose 130 mg/dL (80-115); Protein, Total 5.3 g/dL (5.8-8.1); Sodium 129 mmol/L (136-145)
[2020-11-27 16:34] LABS: Potassium 2.5 mmol/L (3.5-5.1)
[2020-11-27 16:51] LABS: CKMB 1.7 ng/mL (0-6.6)
== END 2020-11-27 16:15 | disposition short-term general hospital (02) ==
LOC: ERS 14:50
DX: I63.039 Cerebral infarction due to thrombosis of unspecified carotid artery (principal); I63.9 Cerebral infarction, unspecified; E11.9 Type 2 diabetes mellitus without complications; E78.5 Hyperlipidemia, unspecified; E78.00 Pure hypercholesterolemia, unspecified; I12.0 Hypertensive chronic kidney disease with stage 5 chronic kidney disease or end stage renal disease; N18.6 End stage renal disease; Z95.1 Presence of aortocoronary bypass graft; F17.210 Nicotine dependence, cigarettes, uncomplicated
CPT/HCPCS: 36415; 70450; 70496; 70498; 71045; 80053; 82553; 84484; 85025; 85610; 85730; 93005; Q9967

== ENCOUNTER 2020-12-25 12:11 | Emergency (ER) | payer MEDICARE ==
[2020-12-25] MEDS ORDERED: Sodium Bicarb 50 MEQ/50 ML Abboject 8.4% SYRINGE ONE (12:14)
[2020-12-25] MEDS ORDERED: EPINEPHrine 1 MG/10 ML Abboject SYRINGE ONE ×2 (12:14→12:38)
[2020-12-25] MEDS ORDERED: Amiodarone 150 MG/3 ML VIAL ONE (12:14)
[2020-12-25] MEDS ORDERED: Atropine Sulfate 1 mg/10 ml Syringe ONE (12:14)
[2020-12-25] MEDS ORDERED: Calcium Chloride 1 GM/10 ML Abboject SYRINGE ONE (12:14)
[2020-12-25] MEDS ORDERED: Heparin 10,000 UNITS/ 10 ML VIAL ONE (12:19)
[2020-12-25] MEDS ORDERED: EPINEPHrine 1 MG/ML VIAL ONE ×2 (12:37)
[2020-12-25] MEDS ORDERED: Aspirin 300 MG Suppository ONE (12:49)
[2020-12-25 13:08] LABS: Hemoglobin 6.2 g/dL (14.0-18.0); Mean Corpuscular Hemoglobin 28.2 pg (27.0-31.0); Mean Corpuscular Volume 90.7 fL (78.0-98.0); RBC Distribution Width 17.1 % (11.5-14.5); Red Blood Cell (RBC) Count 2.21 mill/uL (4.70-6.10); White Blood Cell (WBC) Count 11.3 thou/uL (4.8-10.8)
[2020-12-25 13:19] LABS: Prothrombin Time 95.9 sec (12.0-14.7)
[2020-12-25 13:25] LABS: INR-International Normal Ratio 12.2
[2020-12-25 13:28] LABS: ALT (SGPT) 2330 U/L (8-55); Alkaline Phosphatase 122 U/L (40-110); Anion Gap 41 mmol/L (10-20); BUN (Urea Nitrogen) 28 mg/dL (8.4-25.7); Bilirubin, Total 0.3 mg/dL (0.2-1.2); Calc. Creatinine Clearance 0 mL/min (70-130); Calcium 9.1 mg/dL (7.8-10.44); Carbon Dioxide 12 mmol/L (23-31); Chloride 99 mmol/L (98-107); Glucose 80 mg/dL (80-115); Magnesium 2.6 mg/dL (1.6-2.6); Potassium 5.3 mmol/L (3.5-5.1); Sodium 147 mmol/L (136-145)
[2020-12-25 13:41] LABS: Mean Platelet Volume 9.6 fL (7.4-10.4); Platelet Count 131 thou/uL (130-400)
[2020-12-25 13:42] LABS: Anisocytosis SLIGHT = 6-15 cells (100X) (0-5/hpf); Band 44 % (5-11); Lymphocytes 34 % (21-51); MDiff Complete? YES; Metamyelocyte 3 % (0-0); Neutrophil 19 % (42-75); Nucleated RBC 2 % (0); Platelet Morphology Comment Appears Adequate; Poikilocytosis SLIGHT = 6-15 cells (100X) (0-5/hpf); Reflex for Review?? YES
[2020-12-25 13:48] LABS: AST (SGOT) Greater than 3500 U/L (5-34)
[2020-12-25 13:51] LABS: CKMB 5.7 ng/mL (0-6.6)
== END 2020-12-25 12:58 | disposition expired ==
LOC: ERS 12:11
DX: I46.9 Cardiac arrest, cause unspecified (principal)
CPT/HCPCS: 31500; 36556; 71045; 80053; 82553; 82805; 83605; 83735; 84484; 85025; 85060; 85610; 85730; 92950; 93005; 94002; 96374; 96375; 96376; J0171; J0282; J0461; J1644